=== PATIENT | female | born 1955 | race Caucasian/White ===

== ENCOUNTER → 2021-06-09 | Outpatient (CLI) | payer MEDICARE | LOC: WOUNDCARE 08:30 | PROVIDERS: ATTEND Surgery | DX: I89.0 Lymphedema, not elsewhere classified (principal); I87.332 Chronic venous hypertension (idiopathic) with ulcer and inflammation of left lower extremity; L97.221 Non-pressure chronic ulcer of left calf limited to breakdown of skin; I70.242 Atherosclerosis of native arteries of left leg with ulceration of calf; E66.01 Morbid (severe) obesity due to excess calories; Z68.42 Body mass index [BMI] 45.0-49.9, adult | CPT/HCPCS: 99204 ==

== ENCOUNTER 2021-06-16 18:26 | Emergency (ER) | payer MEDICARE ==
[~2021-06-16] VITALS: Ht 162 cm; Wt 127.0 kg
[2021-06-16 19:14] LABS: BASOPHILS % (AUTO) 0 % (0-10); EOSINOPHILS % (AUTO) 0 % (0-10); HEMATOCRIT 38 % (35-52); HEMOGLOBIN 12.4 g/dL (11.5-16.0); LYMPHOCYTES # (AUTO) 0.5 10^3/uL (1.0-4.0); LYMPHOCYTES % (AUTO) 3 % (12-44); MEAN CORPUSCULAR HEMOGLOBIN 29 pg (25-34); MEAN CORPUSCULAR HGB CONC 33 g/dL (32-36); MEAN CORPUSCULAR VOLUME 89 fL (80-99); MEAN PLATELET VOLUME 10.3 fL (9.0-12.2); MONOCYTES # (AUTO) 0.9 10^3/uL (0.0-1.0); MONOCYTES % (AUTO) 5 % (0-12); NEUTROPHILS # (AUTO) 15.3 10^3/uL (1.8-7.8); NEUTROPHILS % (AUTO) 90 % (42-75); PLATELET COUNT 329 10^3/uL (130-400)
[2021-06-16] MEDS ORDERED: NS IV 1000 ML 1,000 ML IV ONE ×2 (19:15)
--- NOTE | 2021-06-16 19:19 | ED General ---
General Chief Complaint: Neuro-Stroke Like Symptoms Stated Complaint: DIZZINESS, SLURRED SPEECH, VOMITING Source of Information: Patient Exam Limitations: No Limitations History of Present Illness Date Seen by Provider: Jun 16, 2021 Time Seen by Provider: 18:50 Initial Comments Here with report of shakiness today when she went to wound. Around 11 AM, feeling cold, weak and overall just not feeling well. She has had some nausea and vomiting. Family reports that she had some slurred speech today. She states that she still feels weak and cold. Denies any specific area of weakness and states that it is global. She is answering questions appropriately currently. Only has hypertension in the wound to the posterior left leg after an injury on the lower part of the leg. She also suffers from obesity and that seems to be the root cause related to the poor wound healing of the lower extremities. Denies dysuria or diarrhea. Denies sore throat, runny nose or cough. She is not Covid vaccinated. She lives alone and only 2 people come to her house, her son and [id number]. No report of any Covid symptoms in the family. Timing/Duration: 12 Hours Severity: Moderate Modifying Factors: worse with Movement, worse with Rest Associated Systoms: No Cough; Nausea/Vomiting, Shortness of Air, Weakness Allergies and Home Medications Allergies Coded Allergies: No Known Drug Allergies (Unverified , 06/16/21) Home Medications Cefdinir 300 Mg Capsule, 300 MG PO BID Prescribed by: DESI SIM on 06/16/212154 Doxycycline Hyclate 100 Mg Tablet, 100 MG PO BID Prescribed by: DESI SIM on 06/16/212154 Patient Home Medication List Home Medication List Reviewed: Yes Review of Systems Review of Systems Constitutional: chills; No fever EENTM: No nose congestion, No throat pain Respiratory: No cough, No short of breath Cardiovascular: No chest pain; edema; No palpitations Gastrointestinal: No abdominal pain; nausea, vomiting Genitourinary: no symptoms reported Musculoskeletal: no symptoms reported Skin: no symptoms reported All Other Systems Reviewed Negative Unless Noted: Yes Past Lwrtiir-Riybie-Ksrxyd Hx Patient Social History Tobacco Use?: No Substance use?: No Alcohol Use?: No Seasonal Allergies Seasonal Allergies: No Past Medical History Surgeries: Yes Orthopedic Respiratory: No Cardiac: Yes Hypertension Gastrointestinal: No Musculoskeletal: Yes Amputee (Finger) Psychosocial: No Integumentary: Yes Recent Skin Changes (Skin wound) Family Medical History Reviewed and Corrections made No Pertinent Family Hx Physical Exam-Suspected Sepsis Physical Exam Vital Signs Vital Signs - First Documented 06/16/21 06/16/21 20:14 20:23 Temp 37.9 Pulse 112 Resp 18 B/P (MAP) 124/78 (93) Pulse Ox 96 O2 Delivery Room Air Capillary Refill : Height, Weight, BMI Height: '" Weight: lbs. oz. kg; BMI Method: General Appearance: No Apparent Distress, WD/WN, Obese HEENT: PERRL/EOMI, Pharynx Normal Neck: Non Tender, Supple Respiratory: Lungs Clear, Normal Breath Sounds Cardiovascular: No Murmur, Tachycardia Gastrointestinal: Non Tender, Soft Back: Normal Inspection, No CVA Tenderness, No Vertebral Tenderness Extremity: Normal Range of Motion, Pedal Edema, Other (Left leg covered by compression dressing on the lower leg.) Neurologic/Psychiatric: Alert, Oriented x3, No Motor/Sensory Deficits, Normal Mood/Affect, certified rehabilitation counselor II-XII Norm as Tested Skin: normal color, warm/dry Focused Exam Lactate Level 06/16/21 20:00: Lactic Acid Level 1.30 Lactic Acid Level Laboratory Tests Test 06/16/21 20:00 Lactic Acid Level 1.30 MMOL/L (0.50-2.00) Progress/Results/Core Measures Suspected Sepsis SIRS Temperature: Pulse: Respiratory Rate: Laboratory Tests 06/16/21 18:50: White Blood Count 17.0H Blood Pressure / Mean: 06/16/21 20:00: Lactic Acid Level 1.30 Laboratory Tests 06/16/21 18:50: INR Comment 1.0, Platelet Count 329 06/16/21 19:06: Creatinine 1.32H, Total Bilirubin 0.5 Results/Orders Lab Results Laboratory Tests Test 06/16/21 18:50 06/16/21 19:06 06/16/21 19:13 06/16/21 20:00 Range/Units White Blood Count 17.0 H 4.3-11.0 10^3/uL Red Blood Count 4.29 3.80-5.11 10^6/uL Hemoglobin 12.4 11.5-16.0 g/dL Hematocrit 38 35-52 % Mean Corpuscular Volume 89 80-99 fL Mean Corpuscular Hemoglobin 29 25-34 pg Mean Corpuscular Hemoglobin Concent 33 32-36 g/dL Red Cell Distribution Width 13.7 10.0-14.5 % Platelet Count 329 130-400 10^3/uL Mean Platelet Volume 10.3 9.0-12.2 fL Immature Granulocyte % (Auto) 2 % Neutrophils (%) (Auto) 90 H 42-75 % Lymphocytes (%) (Auto) 3 L 12-44 % Monocytes (%) (Auto) 5 0-12 % Eosinophils (%) (Auto) 0 0-10 % Basophils (%) (Auto) 0 0-10 % Neutrophils # (Auto) 15.3 H 1.8-7.8 10^3/uL Lymphocytes # (Auto) 0.5 L 1.0-4.0 10^3/uL Monocytes # (Auto) 0.9 0.0-1.0 10^3/uL Eosinophils # (Auto) 0.0 0.0-0.3 10^3/uL Basophils # (Auto) 0.0 0.0-0.1 10^3/uL Immature Granulocyte # (Auto) 0.3 H 0.0-0.1 10^3/uL Neutrophils % (Manual) 78 % Lymphocytes % (Manual) 2 % Monocytes % (Manual) 6 % Eosinophils % (Manual) 0 % Basophils % (Manual) 0 % Band Neutrophils 14 % Blood Morphology Comment NORMAL Prothrombin Time 13.7 12.2-14.7 SEC INR Comment 1.0 0.8-1.4 Activated Partial Thromboplast Time 28 24-35 SEC D-Dimer 0.96 H 0.00-0.49 UG/ML Sodium Level 139 135-145 MMOL/L Potassium Level 3.6 3.6-5.0 MMOL/L Chloride Level 106 98-107 MMOL/L Carbon Dioxide Level 23 21-32 MMOL/L Anion Gap 10 5-14 MMOL/L Blood Urea Nitrogen 23 H 7-18 MG/DL Creatinine 1.32 H 0.60-1.30 MG/DL Estimat Glomerular Filtration Rate 40 BUN/Creatinine Ratio 17 Glucose Level 136 H 70-105 MG/DL Calcium Level 9.7 8.5-10.1 MG/DL Corrected Calcium 9.9 8.5-10.1 MG/DL Total Bilirubin 0.5 0.1-1.0 MG/DL Aspartate Amino Transf (AST/SGOT) 14 5-34 U/L Alanine Aminotransferase (ALT/SGPT) 15 0-55 U/L Alkaline Phosphatase 65 40-136 U/L C-Reactive Protein High Sensitivity 3.56 H 0.00-0.50 MG/DL Total Protein 7.5 6.4-8.2 GM/DL Albumin 3.7 3.2-4.5 GM/DL Procalcitonin 2.22 H <0.10 NG/ML Influenza Type A (RT-PCR) Not Detected Not Detecte Influenza Type B (RT-PCR) Not Detected Not Detecte SARS-CoV-2 RNA (RT-PCR) Not Detected Not Detecte Urine Color YELLOW Urine Clarity CLEAR Urine pH 5.5 5-9 Urine Specific [place] >=1.030 1.016-1.022 Urine Protein NEGATIVE NEGATIVE Urine Glucose (UA) NEGATIVE NEGATIVE Urine Ketones NEGATIVE NEGATIVE Urine Nitrite NEGATIVE NEGATIVE Urine Bilirubin NEGATIVE NEGATIVE Urine Urobilinogen 0.2 < = 1.0 MG/DL Urine Leukocyte Esterase NEGATIVE NEGATIVE Urine RBC (Auto) TRACE-I NEGATIVE Urine RBC RARE /HPF Urine WBC NONE /HPF Urine Squamous Epithelial Cells 2-5 /HPF Urine Crystals NONE /LPF Urine Bacteria TRACE /HPF Urine Casts NONE /LPF Urine Mucus MODERATE H /LPF Urine Culture Indicated NO Lactic Acid Level 1.30 0.50-2.00 MMOL/L My Orders Orders - DESI SIM MD Cbc With Automated Diff (06/16/21 18:59) Comprehensive Metabolic Panel (06/16/21 18:59) Blood Culture (06/16/21 18:59) Sputum Culture (06/16/21 18:59) Urinalysis (06/16/21 18:59) Urine Culture (06/16/21 18:59) Protime With Inr (06/16/21 18:59) Partial Thromboplastin Time (06/16/21 18:59) Chest 1 View, Ap/Pa Only (06/16/21 18:59) Ed Iv/Invasive Line Start (06/16/21 18:59) Vital Signs Adult Sepsis Patie Q15M (06/16/21 18:59) O2 (06/16/21 18:59) Remove Rings In Anticipation O (06/16/21 18:59) Lactic Acid Analyzer (06/16/21 18:59) Ct Head Wo-R/O Stroke (06/16/21 18:59) Ed Iv/Invasive Line Start (06/16/21 18:59) Fibrin Degradation Products (06/16/21 18:59) Procalcitonin (Pct) (06/16/21 18:59) Hs C Reactive Protein (06/16/21 18:59) Covid 19 Inhouse Test (06/16/21 18:59) Influenza A And B By Pcr (06/16/21 18:59) Ns Iv 1000 Ml (Sodium Chloride 0.9%) (06/16/21 19:15) Ns Iv 1000 Ml (Sodium Chloride 0.9%) (06/16/21 19:15) Straight Cath For Spec.-Adult (06/16/21 19:08) Dysphagia Screening Tool (06/16/21 19:11) Manual Differential (06/16/21 18:50) Ceftriaxone (Rocephin) (06/16/21 21:46) Doxycycline 100mg Po (06/16/21 21:57) Medications Given in ED Current Medications Medications Dose Ordered Sig/[place] Route Start Time Stop Time Status Last Admin Dose Admin Sodium Chloride 1,000 ml @ 0 mls/hr Q0M ONCE IV 06/16/21 19:15 06/16/21 19:16 DC 06/16/21 19:45 0 MLS/HR Vital Signs/I&O 06/16/21 06/16/21 06/16/21 06/16/21 20:14 20:23 20:33 20:46 Temp 37.9 37.9 Pulse 112 112 112 Resp 18 18 18 B/P (MAP) 124/78 (93) 124/78 124/78 Pulse Ox 96 94 94 94 O2 Delivery Room Air Room Air Room Air Capillary Refill : Progress Note : Progress Note Seen and evaluated. I did do stroke scale on her and she is 0. No deficits noted. She is tachycardic with mild fever and I do have concerns about sepsis. We will go ahead and do dysphagia screen as well as CT of the head but otherwise evaluation will focus more towards the sepsis realm. IV established and normal saline 1 L bolus initiated. We will get blood cultures and lactic acid. Patient is not vaccinated for Covid. I think she is very low risk but we will go ahead and test her for that. All of this was discussed with patient and fami ly who agree. Monitor patient. 2148: Rocephin 1 g IV ordered. Patient does have findings of infection but lactic acid is normal and she is actually feeling better after IV fluid with heart rate improved. I did discuss with her and the family regarding inpatient versus home therapy. At this time we will go ahead and try outpatient antibiotic therapy with initial dose of Rocephin 1 g IV here. I will try to reach Dr. Boothe to discuss this with him as well. I have paged him pending callback. Patient is unvaccinated and she would not do well with Covid infection. Family would like to try this at home if possible to protect her which seems reasonable and I agree. Discharged home with return precautions. Patient verbalized understanding of instructions and agreement with plan. We will add a dose of doxycycline prior to departure as well. Case was discussed with Dr. Boothe and he agrees. Diagnostic Imaging Diagonstic Imaging: CT Plain Films/CT/US/NM/MRI: head Comments [facility] [place], [place] NAME: WILLIAM HUMPHREY V [facility] REC#: [id number] PT STATUS: REG ER : 1955 PHYSICIAN: DESI SIM MD ADMIT DATE: 06/16/21/ER Signed Date of Exam:06/16/21 CT HEAD WO-R/O STROKE PROCEDURE: CT head wo r/o stroke. TECHNIQUE: Multiple contiguous axial images were obtained through the brain without the use of intravenous contrast. Auto Exposure Controls were utilized during the CT exam to meet ALARA standards for radiation dose reduction. INDICATION: Slurred each The ventricles are normal in size, shape and position. There are no masses or hemorrhages. There are no extra-axial fluid collections. IMPRESSION: Negative CT head Dictated by: Dictated on workstation # [id number] Dict: 06/16/212052 Trans: 06/16/212053 TCB [id number] Interpreted by: DESI ESPARZA MD Electronically signed by: DESI ESPARZA MD 06/16/212053 ADDENDUM REPORT Impression: There is a calcified meningioma at the left parietal convexity. Dictated by: Dictated on workstation # [id number] Interpreted by: DESI ESPARZA MD Electronically signed by: DESI ESPARZA MD 06/16/212056 Diagonstic Imaging: Xray Plain Films/CT/US/NM/MRI: chest Comments [facility] [place] NAME: WILLIAM HUMPHREY [facility] REC#: [id number] PT STATUS: REG ER : 1955 PHYSICIAN: DESI SIM MD ADMIT DATE: 06/16/21/ER Signed Date of Exam:06/16/21 CHEST 1 VIEW, AP/PA ONLY Indication: Altered mental status Portable chest 8:59 PM Heart size and pulmonary vascularity are normal. Lungs are clear. There are no effusions or pneumothoraces. IMPRESSION: Negative chest Dictated by: Dictated on workstation # [id number] Dict: 06/16/212054 Trans: 06/16/212055 TCB [id number] Interpreted by: DESI ESPARZA MD Electronically signed by: DESI ESPARZA MD 06/16/212055 Departure Impression Primary Impression: Cellulitis of left lower extremity Disposition: 01 HOME, SELF-CARE Condition: Stable Departure-Patient Inst. Decision time for Depature: 21:51 Referrals: DAVEY BOOTHE MD (PCP) Primary Care Physician Patient Instructions: Cellulitis (Skin Infection), Adult (DC) Add. Discharge Instructions: All discharge instructions reviewed with patient and/or family. Voiced understanding. Take medications as directed. Follow-up with Dr. Boothe in 1 to 2 days for recheck and further evaluation. Return for worse pain, fever, vomiting, weakness, breathing problems, altered mental status or other concerns as needed. Drink an adequate amount of fluids and eat a normal diet. Scripts Doxycycline Hyclate (Doxycycline Hyclate) 100 Mg Tablet 100 MG PO BID, #20 TAB 0 Refills Prov: DESI SIM MD 06/16/21 Cefdinir (Cefdinir) 300 Mg Capsule 300 MG PO BID, #14 CAP 0 Refills Prov: DESI SIM MD 06/16/21 Copy Copies To 1: DAVEY BOOTHE MD, TIMOTHY D MD Jun 16, 2021 19:18
[2021-06-16 19:28] LABS: ALBUMIN 3.7 GM/DL (3.2-4.5); BILIRUBIN,TOTAL 0.5 MG/DL (0.1-1.0); CALCIUM 9.7 MG/DL (8.5-10.1); CREATININE SERUM 1.32 MG/DL (0.60-1.30); TOTAL PROTEIN 7.5 GM/DL (6.4-8.2)
[2021-06-16 19:29] LABS: FIBRIN DEGRADATION PRODUCTS 0.96 UG/ML (0.00-0.49); PROTHROMBIN TIME PATIENT 13.7 SEC (12.2-14.7)
[2021-06-16 19:33] LABS: BAND NEUTROPHILS 14 %; BASOPHILS % (MANUAL) 0 %; EOSINOPHILS % (MANUAL) 0 %; LYMPHOCYTES % (MANUAL) 2 %; MONOCYTES % (MANUAL) 6 %; NEUTROPHILS % (MANUAL) 78 %; RBC MORPH NORMAL
[2021-06-16 19:54] LABS: POTASSIUM 3.6 MMOL/L (3.6-5.0)
[2021-06-16 20:32] LABS: BILIRUBIN,URINE NEGATIVE (NEGATIVE); CLARITY,URINE CLEAR; COLOR,URINE YELLOW; GLUCOSE, URINE (UA) NEGATIVE (NEGATIVE); KETONES,URINE NEGATIVE (NEGATIVE); LEUKOCYTE ESTERASE ,URINE NEGATIVE (NEGATIVE); NITRITE,URINE NEGATIVE (NEGATIVE); PH,URINE 5.5 (5-9); PROTEIN,URINE NEGATIVE (NEGATIVE)
[2021-06-16 20:38] LABS: BACTERIA,URINE TRACE /HPF; RBC,URINE RARE /HPF
[2021-06-16 20:46] VITALS: BP 124/78
--- NOTE | 2021-06-16 20:55 | Diagnostic Imaging Report ---
PROCEDURE: CT head wo r/o stroke. TECHNIQUE: Multiple contiguous axial images were obtained through the brain without the use of intravenous contrast. Auto Exposure Controls were utilized during the CT exam to meet ALARA standards for radiation dose reduction. INDICATION: Slurred each The ventricles are normal in size, shape and position. There are no masses or hemorrhages. There are no extra-axial fluid collections. IMPRESSION: Negative CT head Dictated by: Dictated on workstation # [id number]
--- NOTE | 2021-06-16 20:57 | Diagnostic Imaging Report ---
Indication: Altered mental status Portable chest 8:59 PM Heart size and pulmonary vascularity are normal. Lungs are clear. There are no effusions or pneumothoraces. IMPRESSION: Negative chest Dictated by: Dictated on workstation # [id number]
[2021-06-16] MEDS ORDERED: cefTRIAXone 1,000 MG in WATER (STERILE) FOR INJECTION 10 ML IV STA (21:46)
[2021-06-16] MEDS ORDERED: CEFD300C3 PO (21:55)
[2021-06-16] MEDS ORDERED: DOXY100T2 PO (21:55)
[2021-06-16] MEDS ORDERED: DOXYCYCLINE 100 MG (VIBRAMYCIN) TABLET PO STA (21:57)
[2021-06-16 22:28] VITALS: BP 137/86
== END 2021-06-16 22:04 | disposition home or self-care (01) ==
LOC: EDUNIT# 18:26 → ER 18:30
DX: L03.116 Cellulitis of left lower limb (principal); I10 Essential (primary) hypertension; E66.9 Obesity, unspecified; Z20.822 Contact with and (suspected) exposure to COVID-19
CPT/HCPCS: 36415; 51701; 70450; 71045; 80053; 81000; 83605; 84145; 85007; 85027; 85379; 85610; 85730; 86141; 87040; 87088; 87636

== ENCOUNTER → 2021-06-16 | Outpatient (CLI) | payer MEDICARE ==
[~2021-06-16] MED LIST: CEFD300C3 PO; DOXY100T2 PO
== END ==
LOC: WOUNDCARE 11:22
PROVIDERS: ATTEND Surgery
DX: I89.0 Lymphedema, not elsewhere classified (principal); I87.332 Chronic venous hypertension (idiopathic) with ulcer and inflammation of left lower extremity; L97.221 Non-pressure chronic ulcer of left calf limited to breakdown of skin; E66.01 Morbid (severe) obesity due to excess calories; I96 Gangrene, not elsewhere classified
CPT/HCPCS: 29581; A6253; G0463

== ENCOUNTER → 2021-06-18 | Outpatient (CLI) | payer MEDICARE, OTHER | LOC: WOUNDCARE 12:48 | PROVIDERS: ATTEND Surgery | DX: I87.332 Chronic venous hypertension (idiopathic) with ulcer and inflammation of left lower extremity (principal); I96 Gangrene, not elsewhere classified | CPT/HCPCS: 29581; A6253; G0463 ==

== ENCOUNTER → 2021-06-22 | Outpatient (CLI) | payer MEDICARE, OTHER | LOC: WOUNDCARE 12:39 | PROVIDERS: ATTEND Surgery | DX: I89.0 Lymphedema, not elsewhere classified (principal); I87.332 Chronic venous hypertension (idiopathic) with ulcer and inflammation of left lower extremity; L97.221 Non-pressure chronic ulcer of left calf limited to breakdown of skin; E66.01 Morbid (severe) obesity due to excess calories; Z68.42 Body mass index [BMI] 45.0-49.9, adult | CPT/HCPCS: 99212 ==